=== PATIENT | male | born 1995 | race Two or more races ===

== ENCOUNTER 2018-06-13 18:10 | Emergency (ER) | payer OTHER ==
[2018-06-13 18:31] VITALS: BP 154/79
[2018-06-13] MEDS ORDERED: IBUPROFEN 800 MG TABLET PO ONE (18:45)
[2018-06-13] MEDS ORDERED: DIPH/PERTUSS(ACELL)/TETANUS VAC/PF 0.5 ML SYR (>=10YO) IM ONE (19:05)
--- NOTE | 2018-06-13 19:07 | RADIOLOGY REPORT (SQ) ---
EXAM DESCRIPTION: FINGER LEFT COMPLETED DATE/TIME: 06/13/2018 6:58 pm REASON FOR STUDY: injury left middle finger COMPARISON: None. NUMBER OF VIEWS: Three views. TECHNIQUE: AP, lateral, and oblique images acquired of the left third finger. LIMITATIONS: None. FINDINGS: MINERALIZATION: Normal. BONES: Comminuted fracture of the terminal tuft of the 3rd digit. SOFT TISSUES: No soft tissue swelling. No foreign body. OTHER: No other significant finding. IMPRESSION: Comminuted fracture of the terminal tuft of the 3rd digit. TECHNICAL DOCUMENTATION: JOB ID: [id number] [employer]- All Rights Reserved Reading location - IP/workstation name: [email or web address]
[2018-06-13] MEDS ORDERED: CEFAZOLIN 2 GM/D5W RTU 2 GM/50 ML RTUPB IV ONE (19:39)
--- NOTE | 2018-06-13 20:14 | ER Document Report ---
ED Hand/Wrist Injury - General Chief Complaint: Finger Injury Stated Complaint: HAND INJURY Time Seen by Provider: 06/13/18 18:38 Mode of Arrival: Ambulatory Information source: Patient - Per patient's request his friend was interpreting for him as he speaks Telugu Notes: 23-year-old male presented to ED for for injury to his left middle finger when he dropped a 5 gallon bucket of sheet rock mud on his left middle finger. Patient states the finger was "smashed "between the bucket and the ground. Bleeding is under control. Pain is only present when the finger is palpated. The fingernail is no longer present. Patient is alert and respirations regular and unlabored speaking freely with his friend and walking with a even steady gait. TRAVEL OUTSIDE OF THE [place] IN LAST 30 DAYS: No - HPI Injury to: Middle finger - Left hand Onset: Just prior to arrival Where: Work Timing: Still present - States pain is only when palpated Quality of pain: Achy Severity: Moderate Pain Level: 2 Context: Other - Smashed finger lost fingernail on third left finger - Related Data Allergies/Adverse Reactions: No Known Allergies Allergy (Unverified 06/13/18 18:12) Past Medical History - General Information source: Patient - Social History Smoking Status: Never Smoker Chew tobacco use (# tins/day): No Frequency of alcohol use: Occasional Drug Abuse: None Lives with: Family Family History: Reviewed & Not Pertinent Patient has suicidal ideation: No Patient has homicidal ideation: No - Past Medical History Cardiac Medical History: Reports: None Pulmonary Medical History: Reports: None EENT Medical History: Reports: None Neurological Medical History: Reports: None Endocrine Medical History: Reports: None Renal/ Medical History: Reports: None Malignancy Medical History: Reports None GI Medical History: Reports: None Musculoskeletal Medical History: Reports Hx Musculoskeletal Trauma - Open tuft fracture of the third left finger 06/13/2018 Skin Medical History: Reports None Psychiatric Medical History: Reports: None Traumatic Medical History: Reports: Hx Fractures - Open tuft fracture left third finger Infectious Medical History: Reports: None Surgical Hx: Negative Past Surgical History: Reports: None - Immunizations Hx Diphtheria, Pertussis, Tetanus Vaccination: Yes - 06/13/2018 Review of Systems - Review of Systems Constitutional: No symptoms reported EENT: No symptoms reported Cardiovascular: No symptoms reported Respiratory: No symptoms reported Gastrointestinal: No symptoms reported Genitourinary: No symptoms reported Male Genitourinary: No symptoms reported Musculoskeletal: Other - Painful third finger left hand, swollen bruised nail missing. Skin: No symptoms reported Hematologic/Lymphatic: No symptoms reported Neurological/Psychological: No symptoms reported -: Yes All other systems reviewed and negative Physical Exam - Vital signs Vitals: Temp Pulse Resp BP Pulse Ox 98.9 F 97 16 154/79 H 100 06/13/18 18:28 06/13/18 18:28 06/13/18 18:28 06/13/18 18:28 06/13/18 18:28 Interpretation: Normal - General General appearance: Appears well, Alert - HEENT Head: Normocephalic, Atraumatic Eyes: Normal Pupils: PERRL - Respiratory Respiratory status: No respiratory distress Chest status: Nontender Breath sounds: Normal Chest palpation: Normal - Cardiovascular Rhythm: Regular Heart sounds: Normal auscultation Murmur: No - Abdominal Inspection: Normal Distension: No distension Bowel sounds: Normal Tenderness: Nontender Organomegaly: No organomegaly - Back Back: Normal, Nontender - Extremities General upper extremity: Normal color, Normal ROM, Normal temperature General lower extremity: Normal inspection, Nontender, Normal color, Normal ROM , Normal temperature, Normal weight bearing. No: Kory's sign Hand: Tender, Ecchymosis, Nail injury - Nail avulsion third left finger, No evidence of human bite, No evidence of FB, Swelling, Other - Open tuft fracture with nail avulsion - Neurological Neuro grossly intact: Yes Cognition: Normal Orientation: AAOx4 [place] Coma Scale Eye Opening: Spontaneous [place] Coma Scale Verbal: Oriented [place] Coma Scale Motor: Obeys Commands Zach Coma Scale Total: 15 Speech: Normal Motor strength normal: LUE, RUE, LLE, RLE Sensory: Normal - Psychological Associated symptoms: Normal affect, Normal mood - Skin Skin Temperature: Warm Skin Moisture: Dry Skin Color: Normal Course - Re-evaluation Re-evalutation: 06/13/18 20:18 X-ray shows open tuft fracture to left third finger with nail avulsion. Patient treated with 2 g Ancef IV, bacitracin and Xeroform and gauze to the finger then a finger splint. Patient instructed to change dressing tomorrow and if not unable to to change it himself to come to the ED for dressing change. Patient to call orthopedics in the morning to schedule follow-up appointment in his home town of [place] as soon as possible preferably tomorrow. CD of x-ray given to patient to follow-up with orthopedics. Patient discharged home with prescription for Keflex. - Vital Signs Vital signs: Temp Pulse Resp BP Pulse Ox 98.9 F 97 16 154/79 H 100 06/13/18 18:28 06/13/18 18:28 06/13/18 18:28 06/13/18 18:28 06/13/18 18:28 - Diagnostic Test Radiology reviewed: Image reviewed, Reports reviewed Discharge - Discharge Clinical Impression: Open tuft fracture left third finger, Nail avulsion left third finger Condition: Stable Disposition: HOME, SELF-CARE Additional Instructions: Open tuft Fracture of the Finger The tip of your finger is broken (beneath the finger nail). Your fracture is an open fracture and needs to be followed up with orthopedics. Elevating and ice packing the finger will help greatly in reducing pain and swelling. You will probably need a protective splint, initially. When you can push firmly on the tip of your finger without any pain, you no longer need to use the splint. To change her dressing clean well with the soap provided rinse with the saline pat dry apply the bacitracin then the Xeroform gauze then Telfa pad then Kerlix. Then reapply your splint Please change the dressing to your finger tomorrow. If you were unable to change the dressing come to the emergency room for dressing change. I.V. ANTIBIOTICS: You have been given an antibiotic by vein. This is done for more serious infections. The IV antibiotics are usually followed by pills. Common side effects of antibiotics include nausea, intestinal cramping, or diarrhea. These are very unusual following a shot. Women may develop vaginal yeast infections, and babies can get yeast ( thrush) in the mouth following the use of antibiotics. Contact your physician if you develop significant side effects from this medication. Allergy to this antibiotic can result in hives, wheezing, faintness, or itching. If symptoms of allergy occur, call the doctor at once. If further IV doses of antibiotic are planned, an IV lock may have been placed in your vein. This provides a way to give periodic IV medications ( without starting a new IV) while you go about your activities. Don't allow the IV site to be bumped. Don't touch the IV needle. If the tape comes loose, apply more tape to secure the IV. Don't get the IV area wet. If bleeding occurs, remove the bandage. If blood is coming from where the plastic needle enters the skin, apply pressure until the bleeding has stopped. If the blood is coming from the IV cap, grasp the cap with one hand and grasp the wide part of the IV needle with the other hand, then gently twist (clockwise ) until the cap is tight. If bleeding continues, return for examination. Call the doctor or come back if you develop chills or fever, or if the IV area becomes swollen, tender, or red. Cephalexin The antibiotic you've been prescribed is a member of the cephalosporin class. This type of antibiotic covers a wide variety of infections, including those of the skin, lungs, and urinary tract. It's useful for staph infections. This antibiotic is slightly similar to the penicillin family. In rare cases , a person who is allergic to penicillin will also be allergic to this medication. If you have had a severe allergic reaction to penicillin, and have not taken this antibiotic since that time, notify your doctor. Antibiotics which cover many germs ("broad spectrum" antibiotics) are more likely to cause diarrhea or "yeast" infections. Women prone to vaginal yeast problems may suffer an attack after taking this antibiotic. In infants, oral thrush (white spots "stuck" on the cheek) or yeast diaper rash may result. See your doctor if these problems occur. Call at once if you develop itching, hives , shortness of breath, or lightheadedness. Follow-Up Care Although no definite follow-up visit has been scheduled for you, you should return if there is unexpected worsening or a significant change in your symptoms. Prescriptions: Cephalexin Monohydrate [Keflex 500 mg Capsule] 500 mg PO Q6H 5 Days capsule Forms: Elevated Blood Pressure
== END 2018-06-13 20:40 | disposition home or self-care (01) ==
LOC: ER 18:10
DX: S62.633B Displaced fracture of distal phalanx of left middle finger, initial encounter for open fracture (principal); W20.8XXA Other cause of strike by thrown, projected or falling object, initial encounter; Y99.0 Civilian activity done for income or pay
CPT/HCPCS: 99283; 90471; 96365; 73140; 90715; J0690